=== PATIENT | female | born 1950 | race African-American/Black ===

== ENCOUNTER 2019-03-26 07:13 | Emergency (ER) | payer MEDICARE, OTHER, MEDICAID ==
[~2019-03-26] VITALS: Ht 162.6 cm; Wt 56.7 kg
[~2019-03-26 07:13] MED LIST: AMI200T PO; ASPI325T4 PO; BUSP15TA60 PO; CARV6.2551 PO; CINA30TA2 PO; FERR1TAB17 PO; FURO40TA4 PO; GABA300C10 PO; HYDR-4683 PO; MED20T PO; OME20T PO; ZOLP10TA PO
[2019-03-26] MEDS ORDERED: HYDROcodone-ACET 10/325MG TAB PO ONE (10:00)
[2019-03-26] MEDS ORDERED: HYDROcodone-ACET 5/325MG TAB PO ONE (10:15)
[2019-03-26 10:23] VITALS: BP 127/86
== END 2019-03-26 10:40 | disposition home or self-care (01) ==
LOC: ER 07:13
DX: S90.02XA Contusion of left ankle, initial encounter (principal); S40.012A Contusion of left shoulder, initial encounter; I13.2 Hypertensive heart and chronic kidney disease with heart failure and with stage 5 chronic kidney disease, or end stage renal disease; N18.6 End stage renal disease; I50.9 Heart failure, unspecified; F17.210 Nicotine dependence, cigarettes, uncomplicated; Z88.0 Allergy status to penicillin; Z98.51 Tubal ligation status; Z90.710 Acquired absence of both cervix and uterus; Z95.0 Presence of cardiac pacemaker; Z79.899 Other long term (current) drug therapy; V49.9XXA Car occupant (driver) (passenger) injured in unspecified traffic accident, initial encounter; Y93.89 Activity, other specified; Y92.488 Other paved roadways as the place of occurrence of the external cause; Y99.8 Other external cause status
CPT/HCPCS: 73030; 73600; 93970

== ENCOUNTER 2021-06-15 12:13 | Inpatient (IN) | payer MEDICAID, MEDICARE, OTHER ==
[~2021-06-15] VITALS: Ht 162.6 cm; Wt 49.4 kg
[~2021-06-15 12:13] MED LIST changes: -AMI200T PO; +AMIO200T4 PO; -HYDR-4683 PO; +HYDR-4833 PO; -MED20T PO; +MEGE20TA5 PO
[2021-06-15] MEDS ORDERED: AMIODARONE HCL (50 MG/ ML) 3 ML VIAL IV ONE (12:43)
[2021-06-15] MEDS ORDERED: SODIUM CHLORIDE 0.9% 500 ML IV ONE (12:45)
[2021-06-15] MEDS ORDERED: AMIODARONE 450mg/250ml AE 250 ML IV SCH (12:45)
[2021-06-15] MEDS ORDERED: AMIODARONE HCL 150 MG in D5W 5% 100 ML IV ONE (12:45)
[2021-06-15 12:56] LABS: Basophils # (auto) 0 10 ^3/uL (0-0.2); Basophils % (auto) 0.2 % (0.0-2.0); Eosinophils # (auto) 0 10 ^3/uL (0-0.8); Hematocrit 29.7 % (36.0-46.0); Hemoglobin 9.6 g/dL (12.2-16.2); Lymphocytes # (auto) 0.4 10 ^3/uL (0.4-5.4); Lymphocytes % (auto) 3.3 % (10.0-50.0); Mean Corpuscular Hemoglobin 30.8 pg (28.0-32.0); Mean Corpuscular Hgb Conc. 32.2 g/dL (32.0-36.0); Mean Corpuscular Volume 95.7 fL (80.0-100.0); Monocytes % (auto) 17.6 % (0.0-12.0); Neutrophils # (auto) 9.1 10 ^3/uL (1.6-8.6); Neutrophils % (auto) 78.9 % (37.0-80.0); Red Cell Distribution Width 16.4 % (11.8-14.3); White Blood Cell 11.5 10^3/uL (4.4-10.8)
[2021-06-15 13:05] LABS: Albumin 1.9 g/dL (3.4-5.0); Calcium 9.2 mg/dL (8.5-10.1); Magnesium 2.4 mg/dL (1.6-2.6)
[2021-06-15 13:13] LABS: BUN/Creatinine Ratio 5.7; INR 1.21 (0.9-1.15); Partial Thromboplastin Time 36.5 sec (23.6-33.0); Total Protein 6.1 g/dL (6.4-8.2)
[2021-06-15] MEDS ORDERED: POTASSIUM EFFERVESENT TAB 25 MEQ PO ONE (14:45)
[2021-06-15] MEDS ORDERED: MORPHINE SULFATE INJECTION 2 MG/ML SYRG IV PRN ×2 (15:15→16:45)
[2021-06-15] MEDS ORDERED: POTASSIUM CHLORIDE 40 MEQ, LIDOCAINE 1% (LOCAL ANESTH.) 4 ML in SODIUM CHL 0.9% 250 ML IV ONE (15:15)
[2021-06-15] MEDS ORDERED: LACTATED RINGER'S 2,000 ML IV ONE (15:15)
[2021-06-15] MEDS ORDERED: NITROGLYCERIN 0.4 MG SL TAB SL PRN ×2 (15:15→16:45)
[2021-06-15] MEDS ORDERED: LACTATED RINGER'S 1,000 ML IV ONE (15:45)
[2021-06-15] MEDS ORDERED: HYDR-4798 PO (16:08)
[2021-06-15] MEDS ORDERED: MELO1TAB73 PO (16:08)
[2021-06-15] MEDS ORDERED: IPRA0.00 NEB (16:08)
[2021-06-15] MEDS ORDERED: APIX2.5T PO (16:08)
[2021-06-15] MEDS ORDERED: MIDO5TAB3 PO (16:08)
[2021-06-15] MEDS ORDERED: CALC-437 PO (16:09)
[2021-06-15] MEDS ORDERED: CITA-243 PO (16:10)
[2021-06-15] MEDS ORDERED: HYDR-5028 PO (16:10)
[2021-06-15] MEDS ORDERED: B-COTAB59 PO (16:11)
[2021-06-15] MEDS ORDERED: ONDA-144 PO (16:13)
[2021-06-15] MEDS ORDERED: B-CO-5 PO (16:13)
[2021-06-15] MEDS ORDERED: TIZA4TAB7 PO (16:13)
[2021-06-15] MEDS ORDERED: SEVE800T10 PO (16:13)
[2021-06-15] MEDS ORDERED: HYDROcodone-ACET 5/325MG TAB PO PRN (16:45)
[2021-06-15] MEDS ORDERED: FAMOTIDINE (10MG/ML) 2ML VL IV ONE (16:45)
[2021-06-15] MEDS ORDERED: hydrOXYzine HCL 10 MG TAB PO PRN (16:45)
[2021-06-15] MEDS ORDERED: ONDANSETRON HCL 4 MG/2 ML VIAL IV PRN (16:45)
[2021-06-15] MEDS ORDERED: ALUM & MAG HYDROX-SIMETH LIQ(MAALOX) 30 ML PO PRN (16:45)
[2021-06-15] MEDS ORDERED: IPRATROPIUM BROM 0.5 MG/2.5ML INH SOL NEB ONE (16:45)
[2021-06-15] MEDS ORDERED: DOCUSATE SOD 100 MG CAP PO PRN (16:45)
[2021-06-15] MEDS ORDERED: LORazepam 0.5 MG TAB PO PRN (16:45)
[2021-06-15] MEDS ORDERED: ACETAMINOPHEN 325 MG TAB PO PRN (16:45)
[2021-06-15] MEDS ORDERED: VANCOMYCIN PER PHARMACY 0 MG IV SCH (17:15)
[2021-06-15] MEDS ORDERED: MEROPENEM 500MG IVPB 50 ML IV ONE (17:15)
[2021-06-15] MEDS ORDERED: VANCOMYCIN 750mg/250ml 250 ML IV ONE (17:30)
[2021-06-15 19:00] LABS: Magnesium 2.3 mg/dL (1.6-2.6); Potassium 3.4 mmol/L (3.5-5.1)
[2021-06-15 19:05] LABS: Phosphorus 2.8 mg/dL (2.5-4.90)
[2021-06-15] MEDS: SEVELAMER 800 MG TAB PO SCH (21:09)
[2021-06-15] MEDS ORDERED: IPRATROPIUM BROM 0.5 MG/2.5ML INH SOL NEB SCH (22:00)
[2021-06-15] MEDS: IPRATROPIUM BROM 0.5 MG/2.5ML INH SOL NEB SCH (22:00)
[2021-06-15] MEDS: APIXABAN 2.5 MG TAB PO SCH (22:34)
[2021-06-16] MEDS: IPRATROPIUM BROM 0.5 MG/2.5ML INH SOL NEB SCH ×5 (02:00→18:00)
[2021-06-16] MEDS: SEVELAMER 800 MG TAB PO SCH ×3 (08:55→18:27)
[2021-06-16] MEDS: MORPHINE SULFATE INJECTION 2 MG/ML SYRG IV PRN ×2 (09:03→21:36)
[2021-06-16] MEDS ORDERED: MEROPENEM 500MG IVPB 50 ML IV SCH (10:00)
[2021-06-16] MEDS: B-COMPLEX W/ C & FOLIC ACID(NEPHROVITE TAB) PO SCH (10:16)
[2021-06-16] MEDS: APIXABAN 2.5 MG TAB PO SCH ×2 (10:16→21:36)
[2021-06-16] MEDS: CITALOPRAM HYDROBR 20 MG TAB PO SCH (10:16)
[2021-06-16] MEDS: GABAPENTIN 300 MG CAP PO SCH (10:17)
[2021-06-16 10:53] VITALS: BP 92/62
[2021-06-17] MEDS: MORPHINE SULFATE INJECTION 2 MG/ML SYRG IV PRN (02:39)
[2021-06-17] MEDS: IPRATROPIUM BROM 0.5 MG/2.5ML INH SOL NEB SCH (06:16)
[2021-06-17 06:20] LABS: Hemoglobin 9.4 g/dL (12.2-16.2); Mean Corpuscular Hemoglobin 30.9 pg (28.0-32.0); Mean Corpuscular Hgb Conc. 32.4 g/dL (32.0-36.0); Mean Corpuscular Volume 95.1 fL (80.0-100.0); Red Blood Cells 3.05 10^6/uL (4.0-5.20); Red Cell Distribution Width 16.6 % (11.8-14.3); White Blood Cell 11.4 10^3/uL (4.4-10.8)
[2021-06-17 06:35] LABS: Basophils % (manual) 0 (0.0-2.0); Blast Cells 0; Eosinophils % (manual) 0 (0-7); Promyelocytes % 0; Reactive Lymphocytes 0
[2021-06-17 06:44] LABS: Potassium 3.8 mmol/L (3.5-5.1)
[2021-06-17 06:47] LABS: BUN/Creatinine Ratio 6.7; Calcium 8.9 mg/dL (8.5-10.1); Magnesium 2.4 mg/dL (1.6-2.6)
[2021-06-17] MEDS ORDERED: SODIUM CHL 0.9% 1000 ML BAG XX ONE (07:00)
[2021-06-17] MEDS: SEVELAMER 800 MG TAB PO SCH ×3 (08:00→19:09)
[2021-06-17] MEDS ORDERED: diphenhdrAMINE HCL 50 MG/1 ML VL IV ONE (08:15)
[2021-06-17 08:22] LABS: Band Neutrophils % (manual) 7; Lymphocytes % (manual) 4 (10.0-50.0); Metamyelocytes % 2; Monocytes % (manual) 9 (0-12); Myelocytes % 2
[2021-06-17] MEDS ORDERED: METOPROLOL TARTRATE 1MG/1ML-5ML VIAL IV PRN (08:45)
[2021-06-17] MEDS: METOPROLOL TARTRATE 25 MG TAB PO SCH ×3 (09:55→22:31)
[2021-06-17] MEDS: CITALOPRAM HYDROBR 20 MG TAB PO SCH (11:44)
[2021-06-17] MEDS: APIXABAN 2.5 MG TAB PO SCH ×2 (11:46→22:30)
[2021-06-17] MEDS: B-COMPLEX W/ C & FOLIC ACID(NEPHROVITE TAB) PO SCH (11:46)
[2021-06-17] MEDS: GABAPENTIN 300 MG CAP PO SCH (11:47)
[2021-06-17] MEDS ORDERED: EPOETIN ALFA-EPBX 4,000 UNIT/ML VIAL SC ONE (21:00)
[2021-06-17] MEDS ORDERED: FAMOTIDINE (10MG/ML) 2ML VL IV SCH (22:00)
[2021-06-18 05:39] LABS: Hematocrit 27.3 % (36.0-46.0); Hemoglobin 8.6 g/dL (12.2-16.2); Mean Corpuscular Hemoglobin 30.8 pg (28.0-32.0); Mean Corpuscular Hgb Conc. 31.6 g/dL (32.0-36.0); Mean Corpuscular Volume 97.4 fL (80.0-100.0); Red Cell Distribution Width 17.1 % (11.8-14.3); White Blood Cell 11.1 10^3/uL (4.4-10.8)
[2021-06-18 05:48] LABS: Basophils % (manual) 0 (0.0-2.0); Blast Cells 0; Eosinophils % (manual) 0 (0-7); Promyelocytes % 0; Reactive Lymphocytes 0
[2021-06-18 06:12] LABS: Potassium 3.6 mmol/L (3.5-5.1)
[2021-06-18 06:16] LABS: BUN/Creatinine Ratio 6.4; Calcium 9.2 mg/dL (8.5-10.1)
[2021-06-18 07:44] LABS: Band Neutrophils % (manual) 3; Lymphocytes % (manual) 12 (10.0-50.0); Metamyelocytes % 3; Monocytes % (manual) 5 (0-12); Myelocytes % 3
[2021-06-18] MEDS: SEVELAMER 800 MG TAB PO SCH ×2 (08:00→08:42)
[2021-06-18] MEDS: CITALOPRAM HYDROBR 20 MG TAB PO SCH (08:38)
[2021-06-18] MEDS: APIXABAN 2.5 MG TAB PO SCH (08:38)
[2021-06-18] MEDS: B-COMPLEX W/ C & FOLIC ACID(NEPHROVITE TAB) PO SCH (08:39)
[2021-06-18] MEDS: GABAPENTIN 300 MG CAP PO SCH (08:40)
[2021-06-18] MEDS: METOPROLOL TARTRATE 25 MG TAB PO SCH (09:33)
[2021-06-18] MEDS ORDERED: AMIODARONE HCL 200 MG TAB PO ONE (11:00)
[2021-06-18 11:03] VITALS: BP 130/65
[2021-06-19] MEDS ORDERED: AMIODARONE HCL 200 MG TAB PO SCH (10:00)
== END 2021-06-18 12:03 | disposition home or self-care (01) | DRG 291 ==
LOC: ER 12:13 → EDBD 12:13 → TELE 15:02
PROVIDERS: ADMIT Hospitalist; ATTEND Internal Medicine Geriatric Medicine
PROC: 5A1D70Z Performance of Urinary Filtration, Intermittent, Less than 6 Hours Per Day (ICD-10-PCS; principal; 2021-06-17)
DX: I13.2 Hypertensive heart and chronic kidney disease with heart failure and with stage 5 chronic kidney disease, or end stage renal disease (principal); I50.43 Acute on chronic combined systolic (congestive) and diastolic (congestive) heart failure; R57.0 Cardiogenic shock; N18.6 End stage renal disease; E43 Unspecified severe protein-calorie malnutrition; I48.19 Other persistent atrial fibrillation; Z68.1 Body mass index [BMI] 19.9 or less, adult; I95.9 Hypotension, unspecified; K29.70 Gastritis, unspecified, without bleeding; K21.9 Gastro-esophageal reflux disease without esophagitis; F41.9 Anxiety disorder, unspecified; F32.9 Major depressive disorder, single episode, unspecified; D72.829 Elevated white blood cell count, unspecified; E78.5 Hyperlipidemia, unspecified; E87.6 Hypokalemia; M19.90 Unspecified osteoarthritis, unspecified site; D63.1 Anemia in chronic kidney disease; Z20.822 Contact with and (suspected) exposure to COVID-19; F17.210 Nicotine dependence, cigarettes, uncomplicated; Z79.01 Long term (current) use of anticoagulants; Z79.82 Long term (current) use of aspirin; Z79.899 Other long term (current) drug therapy; Z82.49 Family history of ischemic heart disease and other diseases of the circulatory system; Z83.3 Family history of diabetes mellitus; Z90.710 Acquired absence of both cervix and uterus; Z99.2 Dependence on renal dialysis; Z95.810 Presence of automatic (implantable) cardiac defibrillator; Z88.0 Allergy status to penicillin
CPT/HCPCS: 36415; 36556; 71045; 80048; 80053; 80061; 80202; 82140; 82565; 83036; 83735; 83880; 83970; 84100; 84132; 84443; 84484; 85007; 85025; 85027; 85610; 85730; 87040; 87340; 87426; 90935; 93005; 93306; 96365; 96367; 96375; 99291; G0378; J2001; J2185; J2405; J3490; J7060